=== PATIENT | male | born 1975 | race Caucasian/White ===

== ENCOUNTER 2020-04-18 10:37 | Day surgery (SDC) | payer BC ==
[~2020-04-18] VITALS: Ht 180.3 cm; Wt 90.0 kg
[2020-04-18] MEDS ORDERED: LACTATED RINGERS 1,000 ML IV SCH (10:56)
[2020-04-18] MEDS ORDERED: LIDOCAINE-MPF 1%, 2ML INFIL ONE (11:00)
[2020-04-18] MEDS ORDERED: CHLORHEXIDINE 15 ML UDC MM ONE (11:00)
[2020-04-18] MEDS ORDERED: PROPOFOL 10 MG/ML, 20ML ONE (11:17)
[2020-04-18] MEDS ORDERED: DEXAMETHASONE 4 MG/ML, 1ML ONE (11:17)
[2020-04-18] MEDS ORDERED: ONDANSETRON 2MG/ML, 2ML ONE (11:17)
[2020-04-18] MEDS ORDERED: LIDOCAINE-MPF 2% ,5ML ONE (11:17)
[2020-04-18] MEDS ORDERED: MIDAZOLAM 1 MG/ML, 2ML ONE (11:17)
[2020-04-18] MEDS ORDERED: FENTANYL PF 100 MCG/2ML ONE (11:17)
[2020-04-18] MEDS ORDERED: KETOROLAC 30 MG/1 ML ONE (11:17)
[2020-04-18] MEDS ORDERED: CEFAZOLIN 1,000 MG ONE (11:17)
[2020-04-18 11:24] VITALS: BP 145/92
[2020-04-18] MEDS ORDERED: NONE PER PT (11:24)
[2020-04-18] MEDS ORDERED: PLEASE ENTER HEIGHT AND WEIGHT MC SCH (11:30)
[2020-04-18] MEDS ORDERED: LIDOCAINE 1%, 20ML ONE (11:31)
[2020-04-18] MEDS ORDERED: CHLORHEXIDINE 15 ML UDC ONE (11:48)
[2020-04-18] MEDS ORDERED: ROPIvacaine/PF 0.5%, 30 ML ONE (12:08)
[2020-04-18] MEDS ORDERED: LIDOCAINE-MPF 1%, 5ML ONE (12:09)
[2020-04-18] MEDS ORDERED: MIDAZOLAM 1 MG/ML, 2ML IV PRN (13:00)
[2020-04-18] MEDS ORDERED: ACETAMINOPHEN 325 MG TABLET PO PRN (13:00)
[2020-04-18] MEDS ORDERED: PROMETHAZINE 25 MG/ML, 1ML IVPush PRN (13:00)
[2020-04-18] MEDS ORDERED: LABETALOL 5MG/ML, 20ML IV PRN (13:00)
[2020-04-18] MEDS ORDERED: HYDROmorphone 1 MG/ML, 1ML INJ IVPush PRN (13:00)
[2020-04-18] MEDS ORDERED: OXYcodone 5 MG/5 ML ORAL.SOL UDC PO PRN (13:00)
[2020-04-18] MEDS ORDERED: MEPERIDINE/PF 25MG/0.5ML IVPush PRN (13:00)
[2020-04-18] MEDS ORDERED: FENTANYL PF 100 MCG/2ML IV PRN (13:00)
== END 2020-04-18 14:45 | disposition home or self-care (01) ==
LOC: OUT 10:37
PROVIDERS: ATTEND Orthopaedic Surgery
DX: S83.241A Other tear of medial meniscus, current injury, right knee, initial encounter (principal); Z11.59 Encounter for screening for other viral diseases; M65.861 Other synovitis and tenosynovitis, right lower leg; M17.11 Unilateral primary osteoarthritis, right knee; X58.XXXA Exposure to other specified factors, initial encounter; Y93.89 Activity, other specified; Y92.89 Other specified places as the place of occurrence of the external cause; Y99.8 Other external cause status
CPT/HCPCS: 29881; J0690; J1100; J1885; J2250; J2405; J2704; J2795; J3010; J7120; U0001